=== PATIENT | female | born 1940 | race Caucasian/White ===

== ENCOUNTER 2016-08-31 18:40 | Inpatient (IN) | payer MEDICARE, MEDICAID ==
[~2016-08-31 18:40] MED LIST: ACTIVASE100 MG/VIA IV; ADVAIR 2501 DISK W/D; ADVAIR 2501 DISK W/D IH; ADVAIR HFA 115-28 GM IH; ADVAIR HFA 115/12 GM; ALAVERT10 MG; ALBUTEROL NEB INH; ALBUTEROL0.83 MG/ML; ALBUTEROL2.5 MG/0.5; ALDACTONE25 M1 PO; AMBIEN10 MG PO; AMBIEN5 MG PO; AMIODARONE HCL200 MG; AMIODARONE HCL200 MG PO; ANUSOL-HC30 GM; APAP325 MG; ARAVA20 MG; ASPIR 8181 M1 PO; ASPIR 8181 MG; ASPIRIN EC LOW81 MG; ATARAX PO; ATARAX25 MG PO; ATARAX50 MG PO; AYR SALINE NASA14 GM; BABY ASPIRIN81 MG PO; BACITRACIN28.4 G1 TP; BENADRYL12.5 M1 PO; BENADRYL25 MG/TA1 PO; BENADRYL50 MG; CAL-GEST200 MG PO; CARDIZEM CD120 M1 PO; CHLORASEPTIC S1 EACH MM; CITALOPRAM HBR20 M1 PO; CITRATE OF MAG300 ML PO; CLINIMIX E IV; CO GESIC; COLACE-T100 MG; COLACE100 MG PO; COMBIVENT INH14.7 GM; COMPAZINE10 M PO; COUMADIN1 M1 PO; COUMADIN3 M1 PO; COUMADIN4 MG; COUMADIN4 MG PO; COUMADIN5 MG PO; COUMADIN6 MG; COUMADIN6 MG PO; COUMADIN7.5 MG; DEMADEX20 M1 PO; DETROL LA4 MG; DIGITEK125 MC2 PO; DIGOXIN250 MCG PO; DIPHENOXYLATE/A1 TAB; DITROPAN XL10 MG; DITROPAN XL10 MG PO; DITROPAN5 M1 PO; DOC-Q-LACE100 MG; DOCUSATE SODIU100 M PO; DULCOLAX10 MG/SUPP; DULCOLAX10 MG/SUPP RC; DUONEB 2.5-0.5 M3 ML IH; DUONEB 2.5-0.5MG3 M1 AERO NEB; EEMT HS TABLET1 TAB; EMSAM TD; ESTROPIPATE0.75 MG; FAMOTIDINE20 MG; FE-TABS325 ( 65 ); FEROSUL325 M1 PO; FERROUS SU324 ( 65 ); FLEET ENEMA118 ML RC; FLOVENT DISKU100 MCG IH; FLUOXETINE DR90 MG PO; FLUOXETINE HCL20 MG PO; FLUOXETINE HCL40 MG PO; FREESTYLE LITE1 EACH IN; FUROSEMIDE20 M1 PO; FUROSEMIDE20 MG; FUROSEMIDE40 MG; GABAPENTIN300 MG; GLUCAGON IN1 MG/1 ML IM; H; HUMALOG100 U/ML SQ; HYDROCORTISON28.4 G1 TOP; HYDROXYZINE HCL25 MG PO; IMODIUM A-D2 MG; IPRAT-ALBUT 0.5-3 ML IH; K-DUR20 ME1 PO; K-DUR20 MEQ; KLOR-CON 1010 ME1 PO; KLOR-CON 1010 MEQ PO; LANTUS100 U/ML SC; LASIX20 MG; LASIX20 MG PO; LEVOTHROID25 MCG; LEVOTHROID25 MCG PO; LEVOTHROID50 MCG; LEVOTHROID50 MCG PO; LEVOTHYROXINE50 MCG PO; LIBRIUM10 MG; LORTAB 5/500 TA1 TAB; LORTAB 5/5001 EA PO; LOVENOX120 MG/0.8 SQ; LOVENOX40 MG/0.4 SQ; MAG-AL PLUS XS30 ML PO; MARINOL5 MG; METOLAZONE5 MG; MILK OF MA400 MG/5 M; MILK OF MA400 MG/5 M PO; MIRALAX17 GM PO; MIRTAZAPINE30 M1 PO; MUCINEX600 MG; MULTIVITAMIN1 CAP; MULTIVITAMIN1 TAB; MYCOSTATIN15 GM TP; MYLANTA400 MG; NAPROSYN500 MG; NEURONTIN100 M1 PO; NEURONTIN300 MG; NEXIUM40 M1 PO; NITROGLYCERIN0.4 M2 SL; NORCO 5-325 TA1 EACH PO; NORCO 5/3251 TA2 PO; NORCO 5/3251 TAB PO; NORCO 7.5-3251 EACH PO; NOVOLOG100 U/M SQ; NOVOLOG100 UNIT/1 SQ; NYSTATIN25 GM MC; NYSTOP60 GM EXT; OMEPRAZOLE20 M1; OMEPRAZOLE40 MG PO; OXYBUTYNIN CHLOR5 M2 PO; OXYCONTIN20 M2 PO; OXYCONTIN20 MG; OXYGEN; PACERONE100 MG; PAIN RELIEF325 MG; PATANOL5 ML; PHENERGAN IM; POTASSIUM CHLO10 MEQ PO; POTASSIUM CHLO20 MEQ; PREDNISOLONE5 MG; PREDNISONE10 MG; PREDNISONE10 MG PO; PREDNISONE5 MG; PREDNISONE5 MG PO; PRILOSEC20 MG; PROCTOSOL RC; PROMETHAZINE W118 ML; PROTONIX IV; PROTONIX40 M2 PO; PROZAC20 M1 PO; REGLAN10 MG; REGLAN5 MG; REGLAN5 MG PO; REMEDY CALAZIM113 GM TP; REMERON15 MG; REQUIP1 MG; REQUIP2 MG; REQUIP2 MG PO; ROBITUSSIN DM T10 ML PO; SALSALATE750 MG; SENNA LAXATIVE; SENNA PLUS TAB1 EACH PO; SENNA-S TABLET1 EACH PO; SENNA8.6 M; SENOKOT-S TABLE1 TAB PO; SINGULAIR10 MG; SOAP SUDS ENEMA; SODIUM CHLORID250 M1 IV; SODIUM CHLORIDE IV; SPIRIVA18 MCG; SPIRIVA18 MCG IH; STOOL SOFTE; SULFAMETHOXAZOL1 TA1 PO; SYNTHROID25 MCG PO; SYNTHROID50 MCG PO; SYNTHROID75 MC1 PO; TOPROL XL25 MG PO; TRAMADOL HCL50 MG PO; TRANSDERM-1 PATCH .7 TD; TRIAMCINOLON; TYLENOL #31 TA1 PO; TYLENOL325 M2 PO; TYLENOL325 MG PO; TYLENOL650 MG PO; VIBRAMYCIN100 MG PO; VISTARIL25 MG PO; VITAMIN D1000 UNI1 PO; VITAMIN D5000 UNIT PO; VITAMIN D50000 UNIT; VITAMIN D50000 UNIT PO; WARFARIN SODIUM5 MG; WARFARIN SODIUM5 MG PO; WARFARIN SODIUM6 MG; WELLBUTRIN SR100 MG; XOPENEX HFA15 GM; XOPENEX0.31 MG/3; ZELNORM6 MG; ZESTRIL2.5 M3 PO; ZOFRAN IV; ZOFRAN ODT8 MG/TAB PO; ZOFRAN4 MG PO; ZOFRAN8 MG; ZOLOFT100 MG; [UNRECOGNIZED DRUG - OTHER]; [UNRECOGNIZED DRUG - SUPPLY] MC
[2016-08-31] MEDS ORDERED: NOVOLOG FL100 UNIT/2 SC (18:58)
[2016-08-31] MEDS ORDERED: NYSTOP60 GM EXT ×2 (18:59→19:05)
[2016-08-31] MEDS ORDERED: ZINC OXIDE 40% TP (19:01)
[2016-08-31] MEDS ORDERED: BARRIER CREAM TP (19:01)
[2016-08-31] MEDS ORDERED: AYR SALINE NASA14 GM (19:02)
[2016-08-31] MEDS ORDERED: BIOTENE MOIST44.3 ML PO (19:02)
[2016-08-31] MEDS ORDERED: CALAZIME TP (19:03)
[2016-08-31] MEDS ORDERED: [UNRECOGNIZED DRUG - OTHER] TP (19:03)
[2016-08-31] MEDS ORDERED: GOLD BOND MEDI113 G2 TP ×2 (19:04→19:05)
[2016-08-31] MEDS ORDERED: NYSTOP60 GM (19:04)
[2016-08-31] MEDS ORDERED: PREPARATION H26 GM TP (19:05)
[2016-08-31] MEDS ORDERED: TRIAMCINOLONE A15 G2 TP (19:06)
[2016-08-31] MEDS ORDERED: CORTIZONE-1028 G2 TP (19:06)
[2016-08-31] MEDS ORDERED: DOMEBORO PACKE1 EACH TP (19:07)
[2016-08-31] MEDS ORDERED: CHLORASEPTIC177 M2 PO (19:07)
[2016-08-31] MEDS ORDERED: OMEPRAZOLE20 M3 PO (19:08)
[2016-08-31] MEDS ORDERED: SYNTHROID75 MC1 PO (19:08)
[2016-08-31] MEDS ORDERED: VITAMIN D250000 UNI1 PO (19:08)
[2016-08-31] MEDS ORDERED: ASPIRIN EC81 MG PO (19:09)
[2016-08-31] MEDS ORDERED: [UNRECOGNIZED DRUG - CODE] PO (19:09)
[2016-08-31] MEDS ORDERED: CELEXA20 M2 PO (19:09)
[2016-08-31] MEDS ORDERED: BREO ELLIPTA 11 EAC1 INH (19:09)
[2016-08-31] MEDS ORDERED: DILTIAZEM 24HR120 M4 PO (19:10)
[2016-08-31] MEDS ORDERED: COLACE100 M1 PO (19:10)
[2016-08-31] MEDS ORDERED: CLARITIN10 M6 PO (19:10)
[2016-08-31] MEDS ORDERED: GLUCOPHAGE1000 M1 PO (19:10)
[2016-08-31] MEDS ORDERED: ALDACTONE25 M1 PO (19:11)
[2016-08-31] MEDS ORDERED: TORSEMIDE20 M2 PO (19:11)
[2016-08-31] MEDS ORDERED: TYLENOL325 M2 PO ×3 (19:11→19:13)
[2016-08-31] MEDS ORDERED: FEROSUL325 M1 PO (19:11)
[2016-08-31] MEDS ORDERED: OXYBUTYNIN CHLOR5 M3 PO (19:11)
[2016-08-31] MEDS ORDERED: COUMADIN5 M2 PO (19:12)
[2016-08-31] MEDS ORDERED: NEURONTIN100 M1 PO (19:12)
[2016-08-31] MEDS ORDERED: ARTIFICIAL TEAR1512 OP (19:12)
[2016-08-31] MEDS ORDERED: BENZONATATE200 M1 PO (19:13)
[2016-08-31] MEDS ORDERED: CAL-GEST200 MG PO (19:13)
[2016-08-31] MEDS ORDERED: IPRAT-ALBUT 0.5-3 ML INH (19:13)
[2016-08-31] MEDS ORDERED: LOPERAMIDE2 M2 PO (19:14)
[2016-08-31] MEDS ORDERED: NITROSTAT0.4 MG/TAB SL (19:15)
[2016-08-31] MEDS ORDERED: MUCINEX600 M1 PO (19:15)
[2016-08-31] MEDS ORDERED: ZUPLENZ4 M1 PO (19:16)
[2016-08-31] MEDS ORDERED: MIRALAX17 G2 PO (19:16)
[2016-08-31] MEDS ORDERED: HYDROCODON-ACE1 EA16 PO (19:17)
[2016-08-31] MEDS ORDERED: TESSALON PERLE100 M1 PO (19:17)
[2016-08-31 19:34] LABS: HGB-HEMOGLOBIN 11.2 gm/dl (12.0-15.5); MCHC MEAN CORPUSCULAR HGB CONC 31.1 % (32.0-36.0); MCV (MEAN CELL VOLUME) 83.5 fl (82.0-96.0); MEAN PLATELET VOLUME 10.3 cmc (9.4-12.4); NEUTROPHIL-AUTOMATED 20.7 tho/cmm (1.6-8.0); PLATELET COUNT 272 tho/cmm (150-450); RED BLOOD COUNT 4.31 mil/cmm (4.00-5.20); RED CELL DISTRIBUTION WIDTH 16.8 % (12.4-16.4); WHITE BLOOD COUNT 21.9 tho/cmm (4.0-10.0)
[2016-08-31 19:37] LABS: INR 2.6 INR (0.9-1.1); PROTHROMBIN TIME 30.5 SECONDS (9.0-13.6)
[2016-08-31] MEDS ORDERED: TRIPLE ANTIB28.35 GM TP (19:53)
[2016-08-31 19:56] LABS: ALB/GLOB RATIO 0.8 (0.8-2.0); ALKALINE PHOSPHATASE 67 U/L (33-138); ALT/SGPT 14 U/L (12-78); AST/SGOT 16 U/L (10-40); BILIRUBIN,TOTAL 0.4 mg/dl (0-1.5); BLOOD UREA NITROGEN 29 mg/dl (6-24); CALCIUM 8.7 mg/dl (8.5-10.5); CHLORIDE 102 mmol/l (96-110); GLUCOSE 154 mg/dL (70-110); POTASSIUM 4.6 mmol/L (3.7-5.1); SODIUM 141 mmol/L (135-145); eGFR VALUE FOR BLACK 38 mL/Min
[2016-08-31 20:00] LABS: BAND % 18 % (0-20); BAND ABSOLUTE COUNT 3.9 tho/cmm (0-2.0)
[2016-08-31 20:05] LABS: ANION GAP 12 mmol/L (0-20); CARBON DIOXIDE-VENOUS 32 mmol/L (21-33)
[2016-08-31 20:12] LABS: URINE BILIRUBIN NEGATIVE (NEG); URINE BLOOD SMALL (NEG); URINE GLUCOSE (UA) NEGATIVE (NEG); URINE KETONE NEGATIVE (NEG); URINE LEUKOCYTE ESTERASE POSITIVE (NEG); URINE NITRITE NEGATIVE (NEG); URINE PROTEIN NEGATIVE (NEG)
[2016-08-31 20:13] LABS: URINE APPEARANCE HAZY; URINE COLOR YELLOW; URINE SPECIFIC GRAVITY 1.014 (1.003-1.030)
[2016-08-31 20:23] LABS: URINE WBC 15-20 /[HPF] (0-5)
[2016-08-31 20:24] LABS: URINE BACTERIA 4+
[2016-09-01 04:30] LABS: INR 2.6 INR (0.9-1.1); PROTHROMBIN TIME 30.8 SECONDS (9.0-13.6)
[2016-09-01 04:31] LABS: BASO % 0.1 % (0-2); EOS % 0.1 % (0-7); HCT-HEMATOCRIT 31.1 % (34.0-49.0); HGB-HEMOGLOBIN 9.3 gm/dl (12.0-15.5); IMMATURE GRANULOCYTES ABSOLUTE 0.05 tho/cmm (0-0.03); IMMATURE GRANULOCYTES PERCENT 0.3 % (0-0.3); LYMPH % 3.8 % (20-45); LYMPH ABSOLUTE COUNT 0.7 tho/cmm (0.8-4.5); MCH (MEAN CORPUSCULAR HGB) 25.4 pg (28.0-32.0); MCHC MEAN CORPUSCULAR HGB CONC 29.9 % (32.0-36.0); MEAN PLATELET VOLUME 10.7 cmc (9.4-12.4); MONO % 3.8 % (0-12); MONOCYTE ABSOLUTE COUNT 0.7 tho/cmm (0.0-1.2); NEUTROPHIL ABSOLUTE COUNT 16.2 tho/cmm (1.6-8.0); NEUTROPHIL-AUTOMATED 16.2 tho/cmm (1.6-8.0); NEUTROPHILS % 91.9 % (40-80); PLATELET COUNT 226 tho/cmm (150-450); RED BLOOD COUNT 3.66 mil/cmm (4.00-5.20); RED CELL DISTRIBUTION WIDTH 17.8 % (12.4-16.4); WHITE BLOOD COUNT 17.6 tho/cmm (4.0-10.0)
[2016-09-01 05:12] LABS: ALB/GLOB RATIO 0.7 (0.8-2.0); ALBUMIN 2.4 g/dl (3.5-5.0); ALKALINE PHOSPHATASE 51 U/L (33-138); ALT/SGPT 12 U/L (12-78); ANION GAP 11 mmol/L (0-20); AST/SGOT 12 U/L (10-40); BILIRUBIN,TOTAL 0.5 mg/dl (0-1.5); BLOOD UREA NITROGEN 28 mg/dl (6-24); CALCIUM 8.3 mg/dl (8.5-10.5); CARBON DIOXIDE-VENOUS 28 mmol/L (22-32); CHLORIDE 105 mmol/l (96-110); CREATININE 1.41 mg/dl (0.50-1.10); GLUCOSE 124 mg/dL (70-110); POTASSIUM 4.3 mmol/L (3.7-5.1); SODIUM 140 mmol/L (135-145); eGFR VALUE FOR BLACK 44 mL/Min
[2016-09-01 05:17] LABS: TSH-THYROID STIMULATING HORM. 0.02 uIU/ml (0.40-3.80)
[2016-09-01 13:13] LABS: C-REACTIVE PROTEIN 17.4 mg/dl (0-0.9)
[2016-09-02 06:13] LABS: BASO % 0.1 % (0-2); EOS % 3.3 % (0-7); EOSINOPHIL ABSOLUTE COUNT 0.3 tho/cmm (0.0-0.7); HCT-HEMATOCRIT 30.6 % (34.0-49.0); HGB-HEMOGLOBIN 9.2 gm/dl (12.0-15.5); IMMATURE GRANULOCYTES ABSOLUTE 0.01 tho/cmm (0-0.03); IMMATURE GRANULOCYTES PERCENT 0.1 % (0-0.3); INR 3.4 INR (0.9-1.1); LYMPH % 5.2 % (20-45); LYMPH ABSOLUTE COUNT 0.5 tho/cmm (0.8-4.5); MCH (MEAN CORPUSCULAR HGB) 25.7 pg (28.0-32.0); MCHC MEAN CORPUSCULAR HGB CONC 30.1 % (32.0-36.0); MCV (MEAN CELL VOLUME) 85.5 fl (82.0-96.0); MEAN PLATELET VOLUME 10.1 cmc (9.4-12.4); MONO % 4.2 % (0-12); MONOCYTE ABSOLUTE COUNT 0.4 tho/cmm (0.0-1.2); NEUTROPHIL ABSOLUTE COUNT 8.7 tho/cmm (1.6-8.0); NEUTROPHIL-AUTOMATED 8.7 tho/cmm (1.6-8.0); NEUTROPHILS % 87.1 % (40-80); PLATELET COUNT 193 tho/cmm (150-450); PROTHROMBIN TIME 40.8 SECONDS (9.0-13.6); RED BLOOD COUNT 3.58 mil/cmm (4.00-5.20); RED CELL DISTRIBUTION WIDTH 17.3 % (12.4-16.4)
[2016-09-02 06:29] LABS: ANION GAP 8 mmol/L (0-20); BLOOD UREA NITROGEN 21 mg/dl (6-24); CALCIUM 8.4 mg/dl (8.5-10.5); CARBON DIOXIDE-VENOUS 30 mmol/L (22-32); CHLORIDE 107 mmol/l (96-110); CREATININE 1.32 mg/dl (0.50-1.10); GLUCOSE 102 mg/dL (70-110); MAGNESIUM 2.2 mg/dl (1.3-2.6); POTASSIUM 4.2 mmol/L (3.7-5.1); SODIUM 141 mmol/L (135-145); eGFR VALUE FOR BLACK 48 mL/Min
[2016-09-03 05:20] LABS: BASO % 0.1 % (0-2); EOS % 4.3 % (0-7); EOSINOPHIL ABSOLUTE COUNT 0.4 tho/cmm (0.0-0.7); HCT-HEMATOCRIT 31.2 % (34.0-49.0); HGB-HEMOGLOBIN 9.2 gm/dl (12.0-15.5); IMMATURE GRANULOCYTES ABSOLUTE 0.01 tho/cmm (0-0.03); IMMATURE GRANULOCYTES PERCENT 0.1 % (0-0.3); LYMPH % 7.2 % (20-45); LYMPH ABSOLUTE COUNT 0.6 tho/cmm (0.8-4.5); MCH (MEAN CORPUSCULAR HGB) 25.3 pg (28.0-32.0); MCHC MEAN CORPUSCULAR HGB CONC 29.5 % (32.0-36.0); MCV (MEAN CELL VOLUME) 85.7 fl (82.0-96.0); MEAN PLATELET VOLUME 10.2 cmc (9.4-12.4); MONO % 3.9 % (0-12); MONOCYTE ABSOLUTE COUNT 0.3 tho/cmm (0.0-1.2); NEUTROPHIL ABSOLUTE COUNT 7.1 tho/cmm (1.6-8.0); NEUTROPHIL-AUTOMATED 7.1 tho/cmm (1.6-8.0); NEUTROPHILS % 84.4 % (40-80); PLATELET COUNT 231 tho/cmm (150-450); RED BLOOD COUNT 3.64 mil/cmm (4.00-5.20); RED CELL DISTRIBUTION WIDTH 17.3 % (12.4-16.4); WHITE BLOOD COUNT 8.4 tho/cmm (4.0-10.0)
[2016-09-03 05:33] LABS: ANION GAP 13 mmol/L (0-20); BLOOD UREA NITROGEN 17 mg/dl (6-24); C-REACTIVE PROTEIN 15.8 mg/dl (0-0.9); CALCIUM 8.1 mg/dl (8.5-10.5); CARBON DIOXIDE-VENOUS 25 mmol/L (22-32); CHLORIDE 107 mmol/l (96-110); CREATININE 1.18 mg/dl (0.50-1.10); GLUCOSE 99 mg/dL (70-110); MAGNESIUM 2.3 mg/dl (1.3-2.6); POTASSIUM 4.1 mmol/L (3.7-5.1); SODIUM 141 mmol/L (135-145); eGFR VALUE FOR BLACK 54 mL/Min
[2016-09-03 06:41] LABS: INR 4.2 INR (0.9-1.1); PROTHROMBIN TIME 50.4 SECONDS (9.0-13.6)
[2016-09-04 05:44] LABS: INR 4.3 INR (0.9-1.1); PROTHROMBIN TIME 52.2 SECONDS (9.0-13.6)
[2016-09-04 13:40] LABS: BASO % 0.1 % (0-2); EOS % 3.1 % (0-7); EOSINOPHIL ABSOLUTE COUNT 0.2 tho/cmm (0.0-0.7); HCT-HEMATOCRIT 33.2 % (34.0-49.0); IMMATURE GRANULOCYTES ABSOLUTE 0.03 tho/cmm (0-0.03); IMMATURE GRANULOCYTES PERCENT 0.4 % (0-0.3); LYMPH % 11.7 % (20-45); LYMPH ABSOLUTE COUNT 0.9 tho/cmm (0.8-4.5); MCH (MEAN CORPUSCULAR HGB) 25.5 pg (28.0-32.0); MCHC MEAN CORPUSCULAR HGB CONC 30.1 % (32.0-36.0); MCV (MEAN CELL VOLUME) 84.7 fl (82.0-96.0); MEAN PLATELET VOLUME 10.2 cmc (9.4-12.4); MONO % 7.2 % (0-12); MONOCYTE ABSOLUTE COUNT 0.5 tho/cmm (0.0-1.2); NEUTROPHIL ABSOLUTE COUNT 5.7 tho/cmm (1.6-8.0); NEUTROPHIL-AUTOMATED 5.7 tho/cmm (1.6-8.0); NEUTROPHILS % 77.5 % (40-80); PLATELET COUNT 219 tho/cmm (150-450); RED BLOOD COUNT 3.92 mil/cmm (4.00-5.20); RED CELL DISTRIBUTION WIDTH 17.1 % (12.4-16.4); WHITE BLOOD COUNT 7.4 tho/cmm (4.0-10.0)
[2016-09-04 13:50] LABS: ALB/GLOB RATIO 0.6 (0.8-2.0); ALBUMIN 2.4 g/dl (3.5-5.0); ALKALINE PHOSPHATASE 53 U/L (33-138); ANION GAP 11 mmol/L (0-20); AST/SGOT 6 U/L (10-40); BILIRUBIN,TOTAL 0.3 mg/dl (0-1.5); BLOOD UREA NITROGEN 14 mg/dl (6-24); CALCIUM 8.1 mg/dl (8.5-10.5); CARBON DIOXIDE-VENOUS 26 mmol/L (22-32); CHLORIDE 110 mmol/l (96-110); CREATININE 0.96 mg/dl (0.50-1.10); GLUCOSE 107 mg/dL (70-110); MAGNESIUM 2.2 mg/dl (1.3-2.6); POTASSIUM 4.3 mmol/L (3.7-5.1); SODIUM 143 mmol/L (135-145); eGFR VALUE FOR BLACK >60 mL/Min
[2016-09-04 14:05] LABS: ALT/SGPT <10 U/L (12-78); C-REACTIVE PROTEIN 7.6 mg/dl (0-0.9)
[2016-09-05 06:06] LABS: HCT-HEMATOCRIT 32.1 % (34.0-49.0); HGB-HEMOGLOBIN 9.6 gm/dl (12.0-15.5); IMMATURE GRANULOCYTES ABSOLUTE 0.03 tho/cmm (0-0.03); IMMATURE GRANULOCYTES PERCENT 0.7 % (0-0.3); LYMPH % 9.8 % (20-45); LYMPH ABSOLUTE COUNT 0.4 tho/cmm (0.8-4.5); MCH (MEAN CORPUSCULAR HGB) 25.2 pg (28.0-32.0); MCHC MEAN CORPUSCULAR HGB CONC 29.9 % (32.0-36.0); MCV (MEAN CELL VOLUME) 84.3 fl (82.0-96.0); MEAN PLATELET VOLUME 9.9 cmc (9.4-12.4); MONO % 0.7 % (0-12); NEUTROPHIL ABSOLUTE COUNT 3.9 tho/cmm (1.6-8.0); NEUTROPHIL-AUTOMATED 3.9 tho/cmm (1.6-8.0); NEUTROPHILS % 88.8 % (40-80); PLATELET COUNT 243 tho/cmm (150-450); RED BLOOD COUNT 3.81 mil/cmm (4.00-5.20); RED CELL DISTRIBUTION WIDTH 16.7 % (12.4-16.4); WHITE BLOOD COUNT 4.4 tho/cmm (4.0-10.0)
[2016-09-05 06:10] LABS: INR 3.7 INR (0.9-1.1); PROTHROMBIN TIME 44.6 SECONDS (9.0-13.6)
[2016-09-05 06:20] LABS: ANION GAP 15 mmol/L (0-20); BLOOD UREA NITROGEN 19 mg/dl (6-24); C-REACTIVE PROTEIN 5.1 mg/dl (0-0.9); CALCIUM 8.4 mg/dl (8.5-10.5); CARBON DIOXIDE-VENOUS 21 mmol/L (22-32); CHLORIDE 109 mmol/l (96-110); CREATININE 1.03 mg/dl (0.50-1.10); MAGNESIUM 2.2 mg/dl (1.3-2.6); POTASSIUM 4.9 mmol/L (3.7-5.1); SODIUM 140 mmol/L (135-145); eGFR VALUE FOR BLACK >60 mL/Min
[2016-09-05 06:27] LABS: GLUCOSE 165 mg/dL (70-110)
[2016-09-06 12:20] LABS: BASO % 0.1 % (0-2); EOS % 0.1 % (0-7); HCT-HEMATOCRIT 34.5 % (34.0-49.0); HGB-HEMOGLOBIN 10.4 gm/dl (12.0-15.5); IMMATURE GRANULOCYTES PERCENT 1.2 % (0-0.3); LYMPH % 4.9 % (20-45); LYMPH ABSOLUTE COUNT 0.4 tho/cmm (0.8-4.5); MCH (MEAN CORPUSCULAR HGB) 25.4 pg (28.0-32.0); MCHC MEAN CORPUSCULAR HGB CONC 30.1 % (32.0-36.0); MCV (MEAN CELL VOLUME) 84.1 fl (82.0-96.0); MEAN PLATELET VOLUME 9.7 cmc (9.4-12.4); MONO % 3.8 % (0-12); MONOCYTE ABSOLUTE COUNT 0.3 tho/cmm (0.0-1.2); NEUTROPHIL ABSOLUTE COUNT 7.5 tho/cmm (1.6-8.0); NEUTROPHIL-AUTOMATED 7.5 tho/cmm (1.6-8.0); NEUTROPHILS % 89.9 % (40-80); PLATELET COUNT 262 tho/cmm (150-450); RED CELL DISTRIBUTION WIDTH 16.5 % (12.4-16.4)
[2016-09-06 12:21] LABS: WHITE BLOOD COUNT 8.3 tho/cmm (4.0-10.0)
[2016-09-06 12:32] LABS: ANION GAP 12 mmol/L (0-20); BLOOD UREA NITROGEN 28 mg/dl (6-24); CALCIUM 8.8 mg/dl (8.5-10.5); CARBON DIOXIDE-VENOUS 28 mmol/L (22-32); CHLORIDE 106 mmol/l (96-110); CREATININE 1.23 mg/dl (0.50-1.10); GLUCOSE 210 mg/dL (70-110); POTASSIUM 4.3 mmol/L (3.7-5.1); SODIUM 142 mmol/L (135-145); eGFR VALUE FOR BLACK 52 mL/Min
[2016-09-06 13:14] LABS: INR 2.2 INR (0.9-1.1); PROTHROMBIN TIME 26.2 SECONDS (9.0-13.6)
[2016-09-07 05:07] LABS: INR 1.9 INR (0.9-1.1); PROTHROMBIN TIME 22.5 SECONDS (9.0-13.6)
[2016-09-07 12:08] LABS: INR 1.8 INR (0.9-1.1); PROTHROMBIN TIME 20.7 SECONDS (9.0-13.6)
[2016-09-08 06:15] LABS: INR 1.7 INR (0.9-1.1)
[2016-09-08 06:18] LABS: ANION GAP 11 mmol/L (0-20); BLOOD UREA NITROGEN 38 mg/dl (6-24); CALCIUM 8.5 mg/dl (8.5-10.5); CARBON DIOXIDE-VENOUS 34 mmol/L (22-32); CHLORIDE 99 mmol/l (96-110); CREATININE 1.34 mg/dl (0.50-1.10); GLUCOSE 163 mg/dL (70-110); SODIUM 139 mmol/L (135-145); eGFR VALUE FOR BLACK 45 mL/Min
[2016-09-08 06:19] LABS: POTASSIUM 4.5 mmol/L (3.7-5.1)
[2016-09-09 05:18] LABS: INR 1.7 INR (0.9-1.1); PROTHROMBIN TIME 20.4 SECONDS (9.0-13.6)
[2016-09-09 05:26] LABS: ANION GAP 11 mmol/L (0-20); BLOOD UREA NITROGEN 45 mg/dl (6-24); CALCIUM 8.7 mg/dl (8.5-10.5); CARBON DIOXIDE-VENOUS 39 mmol/L (22-32); CHLORIDE 95 mmol/l (96-110); CREATININE 1.37 mg/dl (0.50-1.10); GLUCOSE 105 mg/dL (70-110); SODIUM 141 mmol/L (135-145); eGFR VALUE FOR BLACK 44 mL/Min
[2016-09-09 05:31] LABS: POTASSIUM 3.7 mmol/L (3.7-5.1)
[2016-09-09] MEDS ORDERED: TYLENOL325 M2 PO (11:28)
[2016-09-09] MEDS ORDERED: HYDROCODON-ACE1 EA16 PO (11:29)
[2016-09-09] MEDS ORDERED: FLOVENT HFA1 PUFF INH (11:38)
[2016-09-09] MEDS ORDERED: [UNRECOGNIZED DRUG - OTHER] (11:40)
[2016-09-09] MEDS ORDERED: GONAK ×2 (11:43→11:45)
[2016-09-09] MEDS ORDERED: LUBRICANT (11:49)
[2016-09-09] MEDS ORDERED: MACROBID 100 M100 M1 PO (11:54)
[2016-09-09] MEDS ORDERED: IPRAT-ALBUT 0.5-3 ML (11:59)
[2016-09-09] MEDS ORDERED: SULFAMYLON60 GM (12:08)
[2016-09-09] MEDS ORDERED: TRIPLE ANTIBIOT28 G1 (12:09)
[2016-09-09] MEDS ORDERED: OMEPRAZOLE20 M3 PO (12:11)
[2016-09-09] MEDS ORDERED: VITAMIN D250000 UNI1 PO (12:14)
[2016-09-09] MEDS ORDERED: ZINC OXIDE30 G1 TP (12:15)
[2016-10-02] MEDS ORDERED: CLARITIN10 M6 PO (12:45)
[2016-10-02] MEDS ORDERED: COUMADIN4 M1 PO (12:45)
[2016-10-02] MEDS ORDERED: FEOSOL325 M1 PO (12:46)
[2016-10-02] MEDS ORDERED: DILTIAZEM 24HR120 M3 PO (12:47)
[2016-10-02] MEDS ORDERED: ASPIRIN EC81 MG PO (12:47)
[2016-10-02] MEDS ORDERED: CELEXA20 M2 PO (12:48)
[2016-10-02] MEDS ORDERED: NEURONTIN100 M1 PO (12:48)
[2016-10-02] MEDS ORDERED: ALDACTONE25 M1 PO (12:49)
[2016-10-02] MEDS ORDERED: DEMADEX20 M1 PO (12:49)
[2016-10-02] MEDS ORDERED: TYLENOL325 M2 PO ×2 (12:49→12:58)
[2016-10-02] MEDS ORDERED: BREO ELLIPTA 11 EAC1 INH (12:49)
[2016-10-02] MEDS ORDERED: [UNRECOGNIZED DRUG - CODE] PO (12:50)
[2016-10-02] MEDS ORDERED: ISOPTO TEARS15 M1 OP ×2 (12:50→12:59)
[2016-10-02] MEDS ORDERED: COLACE100 M1 PO (12:50)
[2016-10-02] MEDS ORDERED: SYNTHROID75 MC1 PO (12:51)
[2016-10-02] MEDS ORDERED: GLUCOPHAGE500 M3 PO (12:51)
[2016-10-02] MEDS ORDERED: OMEPRAZOLE20 M3 PO (12:51)
[2016-10-02] MEDS ORDERED: DITROPAN XL5 M3 PO (12:52)
[2016-10-02] MEDS ORDERED: VITAMIN D250000 UNI1 PO (12:52)
[2016-10-02] MEDS ORDERED: MUCINEX600 M1 PO ×2 (12:53→12:59)
[2016-10-02] MEDS ORDERED: BENZONATATE200 M1 PO ×2 (12:53→12:59)
[2016-10-02] MEDS ORDERED: PREDNISOLONE ACE5 M1 OP (12:55)
[2016-10-02] MEDS ORDERED: POLYTRIM EYE DR10 M1 OP (12:56)
[2016-10-02] MEDS ORDERED: IPRAT-ALBUT 0.5-3 ML INH (12:57)
[2016-10-02] MEDS ORDERED: HYDROCODON-ACE1 EA16 PO (12:58)
[2016-10-02] MEDS ORDERED: NITROSTAT0.4 MG/TAB SL (12:58)
[2016-10-02] MEDS ORDERED: LOPERAMIDE2 M2 PO (13:00)
[2016-10-02] MEDS ORDERED: MIRALAX17 G2 PO (13:00)
[2016-10-02] MEDS ORDERED: AYR SALINE NASA14 GM (13:00)
[2016-10-02] MEDS ORDERED: ZOFRAN4 M2 PO (13:01)
[2016-10-02] MEDS ORDERED: A AND D OINTM42.5 GM TP (13:02)
[2016-10-02] MEDS ORDERED: DESITIN57 GM TP (13:03)
[2016-10-02] MEDS ORDERED: NYSTOP60 GM EXT (13:03)
[2016-10-02] MEDS ORDERED: ZINC OXIDE30 G1 TP (13:04)
[2016-10-02] MEDS ORDERED: NOVOLOG100 UNITS/ SC (13:05)
[2016-10-20] MEDS ORDERED: AYR SALINE NASA14 GM (10:07)
[2016-10-20] MEDS ORDERED: DESITIN DIAPER28 GM TOP (10:08)
[2016-10-20] MEDS ORDERED: MIRALAX17 G2 PO (10:09)
[2016-10-20] MEDS ORDERED: NYSTATIN15 G2 TOP (10:09)
[2016-10-20] MEDS ORDERED: NORCO 5-325 TA1 EACH PO (10:09)
[2016-10-20] MEDS ORDERED: MUCINEX600 M1 PO (10:09)
[2016-10-20] MEDS ORDERED: LEVOTHYROXINE75 MC3 PO (10:09)
[2016-10-20] MEDS ORDERED: CARDIZEM CD120 M1 PO (10:10)
[2016-10-20] MEDS ORDERED: COLACE100 M1 PO (10:10)
[2016-10-20] MEDS ORDERED: ASPIRIN EC81 MG PO (10:10)
[2016-10-20] MEDS ORDERED: BREO ELLIPTA 11 EAC1 INH (10:10)
[2016-10-20] MEDS ORDERED: LACTINEX CHEWA1 EAC1 PO (10:10)
[2016-10-20] MEDS ORDERED: OMEPRAZOLE20 M3 PO (10:10)
[2016-10-20] MEDS ORDERED: CELEXA20 M2 PO (10:10)
[2016-10-20] MEDS ORDERED: CLARITIN10 M8 PO (10:11)
[2016-10-20] MEDS ORDERED: FEOSOL325 M1 PO (10:11)
[2016-10-20] MEDS ORDERED: GLUCOPHAGE1000 M1 PO (10:11)
[2016-10-20] MEDS ORDERED: ALDACTONE25 M1 PO (10:11)
[2016-10-20] MEDS ORDERED: OXYBUTYNIN CHLOR5 M2 PO (10:11)
[2016-10-20] MEDS ORDERED: TYLENOL325 M2 PO (10:12)
[2016-10-20] MEDS ORDERED: BLEPHAMIDE EYE3.5 G1 OP (10:12)
[2016-10-20] MEDS ORDERED: DEMADEX20 M1 PO (10:12)
[2016-10-20] MEDS ORDERED: POLYTRIM EYE DR10 M1 OP (10:12)
[2016-10-20] MEDS ORDERED: ISOPTO TEARS15 M1 OP (10:12)
[2016-10-20] MEDS ORDERED: COUMADIN4 M1 PO (10:13)
[2016-10-20] MEDS ORDERED: TESSALON PERLE100 M1 PO (10:13)
[2016-10-20] MEDS ORDERED: REFRESH PLUS1 EACH OP (10:13)
[2016-10-20] MEDS ORDERED: NEURONTIN100 M1 PO (10:13)
[2016-10-20] MEDS ORDERED: VIBRAMYCIN100 M1 PO (10:13)
[2016-10-20] MEDS ORDERED: COMBIVENT RESPIM4 G1 NEB (10:14)
[2016-10-20] MEDS ORDERED: COMPLETE MULTI1 EAC1 PO (10:14)
== END 2016-09-09 16:00 | DRG 872 ==
LOC: EDMED 18:40 → EMR2 22:29 → PCUB 23:32 → 5WD 09-04 18:10
PROVIDERS: Emergency Medicine; Family Medicine; Internal Medicine; ADMIT Internal Medicine
PROC: 05HD33Z Insertion of Infusion Device into Right Cephalic Vein, Percutaneous Approach (ICD-10-PCS; principal; 2016-09-01)
DX: A41.51 Sepsis due to Escherichia coli [E. coli] (principal); N17.9 Acute kidney failure, unspecified; J96.10 Chronic respiratory failure, unspecified whether with hypoxia or hypercapnia; E11.22 Type 2 diabetes mellitus with diabetic chronic kidney disease; N39.0 Urinary tract infection, site not specified; B37.2 Candidiasis of skin and nail; I48.91 Unspecified atrial fibrillation; J44.9 Chronic obstructive pulmonary disease, unspecified; Z68.41 Body mass index [BMI] 40.0-44.9, adult; D63.8 Anemia in other chronic diseases classified elsewhere; L03.311 Cellulitis of abdominal wall; G43.909 Migraine, unspecified, not intractable, without status migrainosus; D50.9 Iron deficiency anemia, unspecified; E03.9 Hypothyroidism, unspecified; E66.01 Morbid (severe) obesity due to excess calories; F31.9 Bipolar disorder, unspecified; N18.3 Chronic kidney disease, stage 3 (moderate); H25.10 Age-related nuclear cataract, unspecified eye; S05.01XA Injury of conjunctiva and corneal abrasion without foreign body, right eye, initial encounter; Z79.01 Long term (current) use of anticoagulants; Z79.4 Long term (current) use of insulin
CPT/HCPCS: C1751; C9113; J0295; J0690; J1200; J1815; J1940; J2543; J2930; J3370; J7030; J7040; J7050; J7512; Q9967

== ENCOUNTER 2016-10-02 14:09 | Inpatient (IN) | payer MEDICARE, MEDICAID ==
[2016-10-02 13:49] LABS: BASO % 0.1 % (0-2); HCT-HEMATOCRIT 40.9 % (34.0-49.0); HGB-HEMOGLOBIN 12.3 gm/dl (12.0-15.5); LYMPH % 4.8 % (20-45); LYMPH ABSOLUTE COUNT 0.8 tho/cmm (0.8-4.5); MCH (MEAN CORPUSCULAR HGB) 25.2 pg (28.0-32.0); MCHC MEAN CORPUSCULAR HGB CONC 30.1 % (32.0-36.0); MCV (MEAN CELL VOLUME) 83.8 fl (82.0-96.0); MEAN PLATELET VOLUME 11.2 cmc (9.4-12.4); MONO % 6.9 % (0-12); MONOCYTE ABSOLUTE COUNT 1.2 tho/cmm (0.0-1.2); NEUTROPHIL ABSOLUTE COUNT 15.3 tho/cmm (1.6-8.0); NEUTROPHIL-AUTOMATED 15.3 tho/cmm (1.6-8.0); NEUTROPHILS % 88.2 % (40-80); PLATELET COUNT 283 tho/cmm (150-450); RED BLOOD COUNT 4.88 mil/cmm (4.00-5.20); RED CELL DISTRIBUTION WIDTH 17.4 % (12.4-16.4); WHITE BLOOD COUNT 17.3 tho/cmm (4.0-10.0)
[2016-10-02 13:52] LABS: INR 1.8 INR (0.9-1.1); PROTHROMBIN TIME 21.7 SECONDS (9.0-13.6)
[~2016-10-02 14:09] MED LIST changes: +A AND D OINTM42.5 GM TP; +ARTIFICIAL TEAR1512 OP; +ASPIRIN EC81 MG PO; +BARRIER CREAM TP; +BENZONATATE200 M1 PO; +BIOTENE MOIST44.3 ML PO; +BREO ELLIPTA 11 EAC1 INH; +CALAZIME TP; +CELEXA20 M2 PO; +CHLORASEPTIC177 M2 PO; +CLARITIN10 M6 PO; +COLACE100 M1 PO; +CORTIZONE-1028 G2 TP; +COUMADIN4 M1 PO; +COUMADIN5 M2 PO; +DESITIN57 GM TP; +DILTIAZEM 24HR120 M3 PO; +DILTIAZEM 24HR120 M4 PO; +DITROPAN XL5 M3 PO; +DOMEBORO PACKE1 EACH TP; +FEOSOL325 M1 PO; +FLOVENT HFA1 PUFF INH; +GLUCOPHAGE1000 M1 PO; +GLUCOPHAGE500 M3 PO; +GOLD BOND MEDI113 G2 TP; +GONAK; +HYDROCODON-ACE1 EA16 PO; +IPRAT-ALBUT 0.5-3 ML; +IPRAT-ALBUT 0.5-3 ML INH; +ISOPTO TEARS15 M1 OP; +LOPERAMIDE2 M2 PO; +LUBRICANT; +MACROBID 100 M100 M1 PO; +MIRALAX17 G2 PO; +MUCINEX600 M1 PO; +NITROSTAT0.4 MG/TAB SL; +NOVOLOG FL100 UNIT/2 SC; +NOVOLOG100 UNITS/ SC; +NYSTOP60 GM; +OMEPRAZOLE20 M3 PO; +OXYBUTYNIN CHLOR5 M3 PO; +POLYTRIM EYE DR10 M1 OP; +PREDNISOLONE ACE5 M1 OP; +PREPARATION H26 GM TP; +SULFAMYLON60 GM; +TESSALON PERLE100 M1 PO; +TORSEMIDE20 M2 PO; +TRIAMCINOLONE A15 G2 TP; +TRIPLE ANTIB28.35 GM TP; +TRIPLE ANTIBIOT28 G1; +VITAMIN D250000 UNI1 PO; +ZINC OXIDE 40% TP; +ZINC OXIDE30 G1 TP; +ZOFRAN4 M2 PO; +ZUPLENZ4 M1 PO; +[UNRECOGNIZED DRUG - CODE] PO; +[UNRECOGNIZED DRUG - OTHER]; +[UNRECOGNIZED DRUG - OTHER] TP
[2016-10-02 14:12] LABS: ALB/GLOB RATIO 0.7 (0.8-2.0); ALBUMIN 2.9 g/dl (3.5-5.0); ALKALINE PHOSPHATASE 89 U/L (33-138); ALT/SGPT 16 U/L (12-78); ANION GAP 12 mmol/L (0-20); AST/SGOT 17 U/L (10-40); BILIRUBIN,TOTAL 0.9 mg/dl (0-1.5); BLOOD UREA NITROGEN 22 mg/dl (6-24); CALCIUM 9.1 mg/dl (8.5-10.5); CARBON DIOXIDE-VENOUS 32 mmol/L (22-32); CHLORIDE 102 mmol/l (96-110); GLUCOSE 138 mg/dL (70-110); LIPASE 54 U/L (73-393); POTASSIUM 4.9 mmol/L (3.7-5.1); SODIUM 141 mmol/L (135-145); eGFR VALUE FOR BLACK 42 mL/Min
[2016-10-02 14:15] LABS: C-REACTIVE PROTEIN 22.6 mg/dl (0-0.9)
[2016-10-02 14:17] LABS: PROCALCITONIN 0.31 ng/ml (0.05-0.09)
[2016-10-02 14:37] LABS: URINE APPEARANCE CLOUDY; URINE BILIRUBIN NEGATIVE (NEG); URINE BLOOD SMALL (NEG); URINE COLOR YELLOW; URINE GLUCOSE (UA) NEGATIVE (NEG); URINE KETONE NEGATIVE (NEG); URINE LEUKOCYTE ESTERASE POSITIVE (NEG); URINE NITRITE POSITIVE (NEG); URINE PROTEIN SMALL (NEG)
[2016-10-02 14:41] LABS: URINE BACTERIA 4+
[2016-10-02 14:42] LABS: URINE RBC 0-2 /[HPF] (0-5); URINE WBC 0-5 /[HPF] (0-5)
[2016-10-03 00:38] LABS: BASO % 0.1 % (0-2); HCT-HEMATOCRIT 31.2 % (34.0-49.0); HGB-HEMOGLOBIN 9.5 gm/dl (12.0-15.5); IMMATURE GRANULOCYTES ABSOLUTE 0.04 tho/cmm (0-0.03); IMMATURE GRANULOCYTES PERCENT 0.4 % (0-0.3); LYMPH % 3.2 % (20-45); LYMPH ABSOLUTE COUNT 0.3 tho/cmm (0.8-4.5); MCH (MEAN CORPUSCULAR HGB) 25.5 pg (28.0-32.0); MCHC MEAN CORPUSCULAR HGB CONC 30.4 % (32.0-36.0); MCV (MEAN CELL VOLUME) 83.9 fl (82.0-96.0); MEAN PLATELET VOLUME 10.5 cmc (9.4-12.4); MONO % 3.5 % (0-12); MONOCYTE ABSOLUTE COUNT 0.3 tho/cmm (0.0-1.2); NEUTROPHIL ABSOLUTE COUNT 8.8 tho/cmm (1.6-8.0); NEUTROPHIL-AUTOMATED 8.8 tho/cmm (1.6-8.0); NEUTROPHILS % 92.8 % (40-80); PLATELET COUNT 177 tho/cmm (150-450); RED BLOOD COUNT 3.72 mil/cmm (4.00-5.20); RED CELL DISTRIBUTION WIDTH 17.2 % (12.4-16.4); WHITE BLOOD COUNT 9.5 tho/cmm (4.0-10.0)
[2016-10-03 00:44] LABS: INR 1.6 INR (0.9-1.1); PROTHROMBIN TIME 18.3 SECONDS (9.0-13.6)
[2016-10-03 00:50] LABS: ANION GAP 11 mmol/L (0-20); BLOOD UREA NITROGEN 20 mg/dl (6-24); CALCIUM 8.2 mg/dl (8.5-10.5); CARBON DIOXIDE-VENOUS 27 mmol/L (22-32); CHLORIDE 109 mmol/l (96-110); CREATININE 1.27 mg/dl (0.50-1.10); GLUCOSE 170 mg/dL (70-110); MAGNESIUM 1.7 mg/dl (1.3-2.6); PHOSPHOROUS 2.7 mg/dl (2.5-4.9); POTASSIUM 4.1 mmol/L (3.7-5.1); SODIUM 143 mmol/L (135-145); eGFR VALUE FOR BLACK 48 mL/Min
[2016-10-03 05:47] LABS: INR 1.5 INR (0.9-1.1)
[2016-10-03 05:48] LABS: BASO % 0.1 % (0-2); HCT-HEMATOCRIT 31.3 % (34.0-49.0); HGB-HEMOGLOBIN 9.4 gm/dl (12.0-15.5); IMMATURE GRANULOCYTES ABSOLUTE 0.03 tho/cmm (0-0.03); IMMATURE GRANULOCYTES PERCENT 0.3 % (0-0.3); LYMPH % 3.9 % (20-45); LYMPH ABSOLUTE COUNT 0.4 tho/cmm (0.8-4.5); MCH (MEAN CORPUSCULAR HGB) 25.3 pg (28.0-32.0); MCV (MEAN CELL VOLUME) 84.4 fl (82.0-96.0); MEAN PLATELET VOLUME 10.6 cmc (9.4-12.4); MONO % 3.3 % (0-12); MONOCYTE ABSOLUTE COUNT 0.4 tho/cmm (0.0-1.2); NEUTROPHIL ABSOLUTE COUNT 10.2 tho/cmm (1.6-8.0); NEUTROPHIL-AUTOMATED 10.2 tho/cmm (1.6-8.0); NEUTROPHILS % 92.4 % (40-80); PLATELET COUNT 186 tho/cmm (150-450); RED BLOOD COUNT 3.71 mil/cmm (4.00-5.20); RED CELL DISTRIBUTION WIDTH 17.4 % (12.4-16.4); WHITE BLOOD COUNT 11.1 tho/cmm (4.0-10.0)
[2016-10-03 05:57] LABS: PROTHROMBIN TIME 17.6 SECONDS (9.0-13.6)
[2016-10-03 06:02] LABS: ANION GAP 10 mmol/L (0-20); BLOOD UREA NITROGEN 20 mg/dl (6-24); CALCIUM 8.3 mg/dl (8.5-10.5); CARBON DIOXIDE-VENOUS 28 mmol/L (22-32); CHLORIDE 109 mmol/l (96-110); CREATININE 1.21 mg/dl (0.50-1.10); GLUCOSE 151 mg/dL (70-110); POTASSIUM 4.3 mmol/L (3.7-5.1); SODIUM 143 mmol/L (135-145); eGFR VALUE FOR BLACK 51 mL/Min
[2016-10-03 06:13] LABS: C-REACTIVE PROTEIN 26.1 mg/dl (0-0.9)
[2016-10-04 05:54] LABS: BASO % 0.1 % (0-2); EOS % 0.8 % (0-7); EOSINOPHIL ABSOLUTE COUNT 0.1 tho/cmm (0.0-0.7); HCT-HEMATOCRIT 31.7 % (34.0-49.0); HGB-HEMOGLOBIN 9.4 gm/dl (12.0-15.5); IMMATURE GRANULOCYTES ABSOLUTE 0.03 tho/cmm (0-0.03); IMMATURE GRANULOCYTES PERCENT 0.3 % (0-0.3); LYMPH % 6.8 % (20-45); LYMPH ABSOLUTE COUNT 0.7 tho/cmm (0.8-4.5); MCH (MEAN CORPUSCULAR HGB) 25.6 pg (28.0-32.0); MCHC MEAN CORPUSCULAR HGB CONC 29.7 % (32.0-36.0); MCV (MEAN CELL VOLUME) 86.4 fl (82.0-96.0); MEAN PLATELET VOLUME 10.6 cmc (9.4-12.4); MONO % 5.8 % (0-12); MONOCYTE ABSOLUTE COUNT 0.6 tho/cmm (0.0-1.2); NEUTROPHIL ABSOLUTE COUNT 9.2 tho/cmm (1.6-8.0); NEUTROPHIL-AUTOMATED 9.2 tho/cmm (1.6-8.0); NEUTROPHILS % 86.2 % (40-80); PLATELET COUNT 188 tho/cmm (150-450); RED BLOOD COUNT 3.67 mil/cmm (4.00-5.20); RED CELL DISTRIBUTION WIDTH 17.5 % (12.4-16.4); WHITE BLOOD COUNT 10.6 tho/cmm (4.0-10.0)
[2016-10-04 17:07] LABS: ANION GAP 10 mmol/L (0-20); BLOOD UREA NITROGEN 20 mg/dl (6-24); CALCIUM 8.3 mg/dl (8.5-10.5); CARBON DIOXIDE-VENOUS 28 mmol/L (22-32); CHLORIDE 109 mmol/l (96-110); CREATININE 1.11 mg/dl (0.50-1.10); GLUCOSE 112 mg/dL (70-110); POTASSIUM 3.6 mmol/L (3.7-5.1); SODIUM 143 mmol/L (135-145); eGFR VALUE FOR BLACK 56 mL/Min
[2016-10-05 06:43] LABS: BASO % 0.1 % (0-2); EOS % 3.4 % (0-7); EOSINOPHIL ABSOLUTE COUNT 0.3 tho/cmm (0.0-0.7); HCT-HEMATOCRIT 29.3 % (34.0-49.0); HGB-HEMOGLOBIN 8.8 gm/dl (12.0-15.5); IMMATURE GRANULOCYTES ABSOLUTE 0.03 tho/cmm (0-0.03); IMMATURE GRANULOCYTES PERCENT 0.3 % (0-0.3); LYMPH % 4.6 % (20-45); LYMPH ABSOLUTE COUNT 0.5 tho/cmm (0.8-4.5); MCH (MEAN CORPUSCULAR HGB) 25.8 pg (28.0-32.0); MCV (MEAN CELL VOLUME) 85.9 fl (82.0-96.0); MEAN PLATELET VOLUME 10.3 cmc (9.4-12.4); MONO % 4.6 % (0-12); MONOCYTE ABSOLUTE COUNT 0.5 tho/cmm (0.0-1.2); NEUTROPHIL ABSOLUTE COUNT 8.7 tho/cmm (1.6-8.0); NEUTROPHIL-AUTOMATED 8.7 tho/cmm (1.6-8.0); PLATELET COUNT 213 tho/cmm (150-450); RED BLOOD COUNT 3.41 mil/cmm (4.00-5.20); RED CELL DISTRIBUTION WIDTH 17.4 % (12.4-16.4)
[2016-10-05 06:57] LABS: ALB/GLOB RATIO 0.5 (0.8-2.0); ALKALINE PHOSPHATASE 74 U/L (33-138); ALT/SGPT 11 U/L (12-78); BILIRUBIN,TOTAL 0.6 mg/dl (0-1.5); BLOOD UREA NITROGEN 16 mg/dl (6-24); CALCIUM 8.1 mg/dl (8.5-10.5); CARBON DIOXIDE-VENOUS 25 mmol/L (22-32); CHLORIDE 111 mmol/l (96-110); CREATININE 0.97 mg/dl (0.50-1.10); GLUCOSE 97 mg/dL (70-110); SODIUM 142 mmol/L (135-145); eGFR VALUE FOR BLACK 66 mL/Min
[2016-10-05 07:02] LABS: ANION GAP 10 mmol/L (0-20); AST/SGOT 12 U/L (10-40); POTASSIUM 3.7 mmol/L (3.7-5.1)
[2016-10-06 04:59] LABS: INR 1.2 INR (0.9-1.1); PROTHROMBIN TIME 13.7 SECONDS (9.0-13.6)
[2016-10-06 09:41] LABS: BASO % 0.1 % (0-2); EOS % 3.3 % (0-7); EOSINOPHIL ABSOLUTE COUNT 0.4 tho/cmm (0.0-0.7); HCT-HEMATOCRIT 29.7 % (34.0-49.0); HGB-HEMOGLOBIN 8.8 gm/dl (12.0-15.5); IMMATURE GRANULOCYTES ABSOLUTE 0.05 tho/cmm (0-0.03); IMMATURE GRANULOCYTES PERCENT 0.5 % (0-0.3); LYMPH % 2.5 % (20-45); LYMPH ABSOLUTE COUNT 0.3 tho/cmm (0.8-4.5); MCH (MEAN CORPUSCULAR HGB) 25.3 pg (28.0-32.0); MCHC MEAN CORPUSCULAR HGB CONC 29.6 % (32.0-36.0); MCV (MEAN CELL VOLUME) 85.3 fl (82.0-96.0); MEAN PLATELET VOLUME 9.7 cmc (9.4-12.4); MONO % 4.1 % (0-12); MONOCYTE ABSOLUTE COUNT 0.5 tho/cmm (0.0-1.2); NEUTROPHIL ABSOLUTE COUNT 9.9 tho/cmm (1.6-8.0); NEUTROPHIL-AUTOMATED 9.9 tho/cmm (1.6-8.0); NEUTROPHILS % 89.5 % (40-80); PLATELET COUNT 208 tho/cmm (150-450); RED BLOOD COUNT 3.48 mil/cmm (4.00-5.20); RED CELL DISTRIBUTION WIDTH 17.4 % (12.4-16.4)
[2016-10-06 09:57] LABS: ANION GAP 13 mmol/L (0-20); BLOOD UREA NITROGEN 11 mg/dl (6-24); CALCIUM 8.6 mg/dl (8.5-10.5); CARBON DIOXIDE-VENOUS 25 mmol/L (22-32); CHLORIDE 112 mmol/l (96-110); CREATININE 0.82 mg/dl (0.50-1.10); GLUCOSE 110 mg/dL (70-110); MAGNESIUM 1.9 mg/dl (1.3-2.6); PHOSPHOROUS 2.5 mg/dl (2.5-4.9); POTASSIUM 3.5 mmol/L (3.7-5.1); SODIUM 146 mmol/L (135-145); eGFR VALUE FOR BLACK 81 mL/Min
[2016-10-06] MEDS ORDERED: LOVENOX40 MG/0.1 SC (13:57)
[2016-10-06] MEDS ORDERED: GLUCAGON HCL1 MG SC (14:10)
[2016-10-20] MEDS ORDERED: AYR SALINE NASA14 GM (10:07)
[2016-10-20] MEDS ORDERED: DESITIN DIAPER28 GM TOP (10:08)
[2016-10-20] MEDS ORDERED: MIRALAX17 G2 PO (10:09)
[2016-10-20] MEDS ORDERED: MUCINEX600 M1 PO (10:09)
[2016-10-20] MEDS ORDERED: NORCO 5-325 TA1 EACH PO (10:09)
[2016-10-20] MEDS ORDERED: NYSTATIN15 G2 TOP (10:09)
[2016-10-20] MEDS ORDERED: LEVOTHYROXINE75 MC3 PO (10:09)
[2016-10-20] MEDS ORDERED: OMEPRAZOLE20 M3 PO (10:10)
[2016-10-20] MEDS ORDERED: LACTINEX CHEWA1 EAC1 PO (10:10)
[2016-10-20] MEDS ORDERED: CELEXA20 M2 PO (10:10)
[2016-10-20] MEDS ORDERED: ASPIRIN EC81 MG PO (10:10)
[2016-10-20] MEDS ORDERED: CARDIZEM CD120 M1 PO (10:10)
[2016-10-20] MEDS ORDERED: COLACE100 M1 PO (10:10)
[2016-10-20] MEDS ORDERED: BREO ELLIPTA 11 EAC1 INH (10:10)
[2016-10-20] MEDS ORDERED: CLARITIN10 M8 PO (10:11)
[2016-10-20] MEDS ORDERED: OXYBUTYNIN CHLOR5 M2 PO (10:11)
[2016-10-20] MEDS ORDERED: GLUCOPHAGE1000 M1 PO (10:11)
[2016-10-20] MEDS ORDERED: FEOSOL325 M1 PO (10:11)
[2016-10-20] MEDS ORDERED: ALDACTONE25 M1 PO (10:11)
[2016-10-20] MEDS ORDERED: DEMADEX20 M1 PO (10:12)
[2016-10-20] MEDS ORDERED: ISOPTO TEARS15 M1 OP (10:12)
[2016-10-20] MEDS ORDERED: BLEPHAMIDE EYE3.5 G1 OP (10:12)
[2016-10-20] MEDS ORDERED: POLYTRIM EYE DR10 M1 OP (10:12)
[2016-10-20] MEDS ORDERED: TYLENOL325 M2 PO (10:12)
[2016-10-20] MEDS ORDERED: NEURONTIN100 M1 PO (10:13)
[2016-10-20] MEDS ORDERED: VIBRAMYCIN100 M1 PO (10:13)
[2016-10-20] MEDS ORDERED: REFRESH PLUS1 EACH OP (10:13)
[2016-10-20] MEDS ORDERED: TESSALON PERLE100 M1 PO (10:13)
[2016-10-20] MEDS ORDERED: COUMADIN4 M1 PO (10:13)
[2016-10-20] MEDS ORDERED: COMBIVENT RESPIM4 G1 NEB (10:14)
[2016-10-20] MEDS ORDERED: COMPLETE MULTI1 EAC1 PO (10:14)
== END 2016-10-06 16:30 | DRG 853 ==
LOC: EDMED 14:09 → EMR2 15:08 → ORW 20:00 → BURN 10-03 01:09
PROVIDERS: Emergency Medicine; Family Medicine; Hospitalist; Internal Medicine; Surgery; ADMIT Hospitalist
PROC: 0WUF0JZ Supplement Abdominal Wall with Synthetic Substitute, Open Approach (ICD-10-PCS; principal; 2016-10-02)
PROC: 0DB80ZZ Excision of Small Intestine, Open Approach (ICD-10-PCS; 2016-10-02)
PROC: 0WBF0ZZ Excision of Abdominal Wall, Open Approach (ICD-10-PCS; 2016-10-02)
PROC: 05H533Z Insertion of Infusion Device into Right Subclavian Vein, Percutaneous Approach (ICD-10-PCS; 2016-10-04)
DX: A41.9 Sepsis, unspecified organism (principal); K43.7 Other and unspecified ventral hernia with gangrene; J96.11 Chronic respiratory failure with hypoxia; E87.0 Hyperosmolality and hypernatremia; E11.22 Type 2 diabetes mellitus with diabetic chronic kidney disease; N39.0 Urinary tract infection, site not specified; J44.9 Chronic obstructive pulmonary disease, unspecified; B96.1 Klebsiella pneumoniae [K. pneumoniae] as the cause of diseases classified elsewhere; I48.2 Chronic atrial fibrillation; Z79.01 Long term (current) use of anticoagulants; Z99.81 Dependence on supplemental oxygen; I12.9 Hypertensive chronic kidney disease with stage 1 through stage 4 chronic kidney disease, or unspecified chronic kidney disease; N18.3 Chronic kidney disease, stage 3 (moderate); K21.9 Gastro-esophageal reflux disease without esophagitis; G47.33 Obstructive sleep apnea (adult) (pediatric); M81.0 Age-related osteoporosis without current pathological fracture; E03.9 Hypothyroidism, unspecified; Z85.3 Personal history of malignant neoplasm of breast; Z87.891 Personal history of nicotine dependence; F32.9 Major depressive disorder, single episode, unspecified; E66.01 Morbid (severe) obesity due to excess calories
CPT/HCPCS: C1751; C9113; J0878; J1170; J1644; J1815; J2543; J3430; J7030; J7050; P9017; P9612; Q4130

== ENCOUNTER 2016-11-09 03:08 | Inpatient (IN) | payer MEDICARE, MEDICAID ==
[~2016-11-09 03:08] MED LIST changes: +BLEPHAMIDE EYE3.5 G1 OP; +CLARITIN10 M8 PO; +COMBIVENT RESPIM4 G1 NEB; +COMPLETE MULTI1 EAC1 PO; +DESITIN DIAPER28 GM TOP; +GLUCAGON HCL1 MG SC; +LACTINEX CHEWA1 EAC1 PO; +LEVOTHYROXINE75 MC3 PO; +LOVENOX40 MG/0.1 SC; +NYSTATIN15 G2 TOP; +REFRESH PLUS1 EACH OP; +VIBRAMYCIN100 M1 PO
[2016-11-09 04:25] LABS: BASO % 0.3 % (0-2); EOSINOPHIL ABSOLUTE COUNT 0.2 tho/cmm (0.0-0.7); HCT-HEMATOCRIT 34.7 % (34.0-49.0); HGB-HEMOGLOBIN 10.4 gm/dl (12.0-15.5); IMMATURE GRANULOCYTES ABSOLUTE 0.02 tho/cmm (0-0.03); IMMATURE GRANULOCYTES PERCENT 0.2 % (0-0.3); LYMPH % 10.9 % (20-45); LYMPH ABSOLUTE COUNT 1.2 tho/cmm (0.8-4.5); MCH (MEAN CORPUSCULAR HGB) 25.4 pg (28.0-32.0); MCV (MEAN CELL VOLUME) 84.8 fl (82.0-96.0); MEAN PLATELET VOLUME 10.7 cmc (9.4-12.4); MONOCYTE ABSOLUTE COUNT 0.5 tho/cmm (0.0-1.2); NEUTROPHIL ABSOLUTE COUNT 9.2 tho/cmm (1.6-8.0); NEUTROPHIL-AUTOMATED 9.2 tho/cmm (1.6-8.0); NEUTROPHILS % 82.6 % (40-80); PLATELET COUNT 472 tho/cmm (150-450); RED BLOOD COUNT 4.09 mil/cmm (4.00-5.20); RED CELL DISTRIBUTION WIDTH 17.9 % (12.4-16.4); WHITE BLOOD COUNT 11.2 tho/cmm (4.0-10.0)
[2016-11-09] MEDS ORDERED: FLAGYL500 M1 PO (04:30)
[2016-11-09 04:39] LABS: INR 1.7 INR (0.9-1.1); PROTHROMBIN TIME 19.7 SECONDS (9.0-13.6)
[2016-11-09] MEDS ORDERED: BACTRIM DS TAB1 EAC2 PO (04:40)
[2016-11-09] MEDS ORDERED: NORCO 5-325 TA1 EACH PO (04:41)
[2016-11-09] MEDS ORDERED: ZOFRAN4 M2 PO (04:42)
[2016-11-09] MEDS ORDERED: OXYGEN (04:43)
[2016-11-09 04:52] LABS: ALB/GLOB RATIO 0.6 (0.8-2.0); ALKALINE PHOSPHATASE 89 U/L (33-138); ALT/SGPT 19 U/L (12-78); ANION GAP 15 mmol/L (0-20); AST/SGOT 27 U/L (10-40); BILIRUBIN,TOTAL 0.5 mg/dl (0-1.5); BLOOD UREA NITROGEN 42 mg/dl (6-24); CALCIUM 9.3 mg/dl (8.5-10.5); CARBON DIOXIDE-VENOUS 31 mmol/L (22-32); CHLORIDE 99 mmol/l (96-110); CREATININE 2.04 mg/dl (0.50-1.10); GLUCOSE 101 mg/dL (70-110); LIPASE 130 U/L (73-393); MAGNESIUM 2.6 mg/dl (1.8-2.6); POTASSIUM 3.7 mmol/L (3.7-5.1); SODIUM 141 mmol/L (135-145); eGFR VALUE FOR BLACK 27 mL/Min
[2016-11-09 04:56] LABS: PROCALCITONIN 0.07 ng/ml (0.05-0.09)
[2016-11-09 04:59] LABS: TSH-THYROID STIMULATING HORM. 2.71 uIU/ml (0.40-3.80)
[2016-11-09 05:39] LABS: URINE BILIRUBIN MODERATE (NEG); URINE BLOOD SMALL (NEG); URINE GLUCOSE (UA) NEGATIVE (NEG); URINE KETONE MODERATE (NEG); URINE LEUKOCYTE ESTERASE POSITIVE (NEG); URINE NITRITE NEGATIVE (NEG); URINE PROTEIN MODERATE (NEG); URINE SPECIFIC GRAVITY 1.025 (1.003-1.030)
[2016-11-09 05:46] LABS: URINE APPEARANCE HAZY; URINE COLOR DARK YELLOW
[2016-11-09 05:52] LABS: URINE AMORPHOUS 1+; URINE MUCUS 1+; URINE RBC RARE /[HPF] (0-5)
--- NOTE | 2016-11-09 20:00 | NUR ---
VIRTUAL CARE NOTE: DAUGHTER TEO OLEARY CALLED LETTING US KNOW THAT NO ONE ELSE SHOULD BE GETTING PTS MEDICAL INFORMATION. THAT ONLY SHE AND POA (CRIPPLE CHASER SHAYLA RIZO) ARE THE ONLY ONES. MAINLY THIS IS TO PREVENT THE GAME OF TELEPHONE AND DIFFERENT INFORMATION COMING FROM DIFFERENT PEOPLE. ONE SISTER - RUBI - IN PARTICULAR MAKES SITUATIONS WORSE. HAS ALREADY CALLED THE FAMILY SAYING THAT MOM IS DYING AND THEY NEED TO HAVE A FAMILY MEETING ETC. THESE WISHES WERE ALSO VERBALIZED BY THE PATIENT. REVIEWED PLAN OF CARE WITH PATIENT WITH TEO OVER THE PHONE. DENIES FURTHER QUESTIONS OR CONCERNS AT THIS TIME. TEO SAYS SHE WILL ONLY BE CALLING FROM A 308 NUMBER SO THAT IS ONE WAY WE CAN IDENTIFY HER. SHE DENIED THE NEED FOR A CODE OR PASSWORD. JUST TO MAKE SURE THE CALLER IS HER. THE FAMILY MAY CALL THE PATIENT IN THE ROOM AND THAT IS OK, BUT THEY WANT ONE PERSON RESPONSIBLE FOR PLAN OF CARE AND UPDATES. NOTE PUT IN SHIFT REPORT. INFORMED FLOOR STAFF AND WILL INFORM ONCOMING VN.
[2016-11-10 05:36] LABS: BASO % 0.2 % (0-2); EOS % 3.5 % (0-7); EOSINOPHIL ABSOLUTE COUNT 0.3 tho/cmm (0.0-0.7); HCT-HEMATOCRIT 32.3 % (34.0-49.0); HGB-HEMOGLOBIN 9.4 gm/dl (12.0-15.5); IMMATURE GRANULOCYTES ABSOLUTE 0.02 tho/cmm (0-0.03); IMMATURE GRANULOCYTES PERCENT 0.2 % (0-0.3); LYMPH ABSOLUTE COUNT 1.1 tho/cmm (0.8-4.5); MCH (MEAN CORPUSCULAR HGB) 25.1 pg (28.0-32.0); MCHC MEAN CORPUSCULAR HGB CONC 29.1 % (32.0-36.0); MCV (MEAN CELL VOLUME) 86.4 fl (82.0-96.0); MEAN PLATELET VOLUME 10.7 cmc (9.4-12.4); MONO % 5.6 % (0-12); MONOCYTE ABSOLUTE COUNT 0.5 tho/cmm (0.0-1.2); NEUTROPHIL ABSOLUTE COUNT 7.2 tho/cmm (1.6-8.0); NEUTROPHIL-AUTOMATED 7.2 tho/cmm (1.6-8.0); NEUTROPHILS % 78.5 % (40-80); PLATELET COUNT 390 tho/cmm (150-450); RED BLOOD COUNT 3.74 mil/cmm (4.00-5.20); RED CELL DISTRIBUTION WIDTH 17.9 % (12.4-16.4); WHITE BLOOD COUNT 9.2 tho/cmm (4.0-10.0)
[2016-11-10 05:43] LABS: INR 1.9 INR (0.9-1.1); PROTHROMBIN TIME 22.8 SECONDS (9.0-13.6)
[2016-11-10 05:48] LABS: ANION GAP 12 mmol/L (0-20); BLOOD UREA NITROGEN 32 mg/dl (6-24); CARBON DIOXIDE-VENOUS 30 mmol/L (22-32); CHLORIDE 105 mmol/l (96-110); CREATININE 1.56 mg/dl (0.50-1.10); GLUCOSE 91 mg/dL (70-110); MAGNESIUM 2.3 mg/dl (1.8-2.6); PHOSPHOROUS 3.4 mg/dl (2.5-4.9); POTASSIUM 3.6 mmol/L (3.7-5.1); SODIUM 143 mmol/L (135-145); eGFR VALUE FOR BLACK 37 mL/Min
--- NOTE | 2016-11-10 14:33 | NUR ---
[id number] VIRTUAL NURSE NOTES: ROUNDING ON PATIENT. C/O NAUSEA AND VOMITING. STATES HADN'T HAD ANY MEDICATION RECENTLY FOR NAUSEA. PATIENT LOOKS VERY UNCOMFORTABLE. DENIES PAIN. IJEOMA EVANGELISTA NOTIFIED ABOUT GIVING PATIENT SOME COMPAZINE. IJEOMA TO CHECK ON PATIENT. Pee CABRERA RN
[2016-11-11 05:20] LABS: BASO % 0.4 % (0-2); EOS % 5.1 % (0-7); EOSINOPHIL ABSOLUTE COUNT 0.4 tho/cmm (0.0-0.7); HCT-HEMATOCRIT 32.7 % (34.0-49.0); HGB-HEMOGLOBIN 9.3 gm/dl (12.0-15.5); LYMPH % 9.8 % (20-45); LYMPH ABSOLUTE COUNT 0.8 tho/cmm (0.8-4.5); MCH (MEAN CORPUSCULAR HGB) 25.2 pg (28.0-32.0); MCV (MEAN CELL VOLUME) 88.6 fl (82.0-96.0); MEAN PLATELET VOLUME 11.1 cmc (9.4-12.4); MONO % 5.9 % (0-12); MONOCYTE ABSOLUTE COUNT 0.5 tho/cmm (0.0-1.2); NEUTROPHIL ABSOLUTE COUNT 6.7 tho/cmm (1.6-8.0); NEUTROPHIL-AUTOMATED 6.7 tho/cmm (1.6-8.0); NEUTROPHILS % 78.8 % (40-80); PLATELET COUNT 347 tho/cmm (150-450); RED BLOOD COUNT 3.69 mil/cmm (4.00-5.20); RED CELL DISTRIBUTION WIDTH 18.2 % (12.4-16.4); WHITE BLOOD COUNT 8.4 tho/cmm (4.0-10.0)
[2016-11-11 05:23] LABS: MCHC MEAN CORPUSCULAR HGB CONC 28.4 % (32.0-36.0)
[2016-11-11 05:27] LABS: INR 2.2 INR (0.9-1.1); PROTHROMBIN TIME 26.2 SECONDS (9.0-13.6)
[2016-11-12 03:46] LABS: BASO % 0.3 % (0-2); EOS % 5.5 % (0-7); EOSINOPHIL ABSOLUTE COUNT 0.8 tho/cmm (0.0-0.7); HCT-HEMATOCRIT 32.7 % (34.0-49.0); HGB-HEMOGLOBIN 9.5 gm/dl (12.0-15.5); IMMATURE GRANULOCYTES ABSOLUTE 0.03 tho/cmm (0-0.03); IMMATURE GRANULOCYTES PERCENT 0.2 % (0-0.3); LYMPH % 4.5 % (20-45); LYMPH ABSOLUTE COUNT 0.6 tho/cmm (0.8-4.5); MCH (MEAN CORPUSCULAR HGB) 25.3 pg (28.0-32.0); MCHC MEAN CORPUSCULAR HGB CONC 29.1 % (32.0-36.0); MEAN PLATELET VOLUME 10.7 cmc (9.4-12.4); MONO % 3.8 % (0-12); MONOCYTE ABSOLUTE COUNT 0.5 tho/cmm (0.0-1.2); NEUTROPHIL ABSOLUTE COUNT 11.6 tho/cmm (1.6-8.0); NEUTROPHIL-AUTOMATED 11.6 tho/cmm (1.6-8.0); NEUTROPHILS % 85.7 % (40-80); PLATELET COUNT 330 tho/cmm (150-450); RED BLOOD COUNT 3.76 mil/cmm (4.00-5.20); RED CELL DISTRIBUTION WIDTH 18.2 % (12.4-16.4)
[2016-11-12 03:49] LABS: INR 3.3 INR (0.9-1.1); PROTHROMBIN TIME 39.9 SECONDS (9.0-13.6)
[2016-11-12 03:52] LABS: WHITE BLOOD COUNT 13.5 tho/cmm (4.0-10.0)
[2016-11-12 03:55] LABS: ALB/GLOB RATIO 0.7 (0.8-2.0); ALBUMIN 2.5 g/dl (3.5-5.0); ALKALINE PHOSPHATASE 70 U/L (33-138); ALT/SGPT 21 U/L (12-78); AMYLASE 30 U/L (20-90); ANION GAP 13 mmol/L (0-20); AST/SGOT 23 U/L (10-40); BILIRUBIN,TOTAL 0.6 mg/dl (0-1.5); BLOOD UREA NITROGEN 22 mg/dl (6-24); CALCIUM 8.5 mg/dl (8.5-10.5); CARBON DIOXIDE-VENOUS 26 mmol/L (22-32); CHLORIDE 111 mmol/l (96-110); CREATINE PHOSPHOKINASE (CPK) 106 U/L (21-215); CREATININE 1.74 mg/dl (0.50-1.10); GLUCOSE 102 mg/dL (70-110); POTASSIUM 3.5 mmol/L (3.7-5.1); SODIUM 146 mmol/L (135-145); eGFR VALUE FOR BLACK 33 mL/Min
[2016-11-12 03:59] LABS: TSH-THYROID STIMULATING HORM. 1.91 uIU/ml (0.40-3.80)
[2016-11-12 04:13] LABS: PROCALCITONIN 0.13 ng/ml (0.05-0.09)
[2016-11-12 20:05] LABS: URINE BILIRUBIN NEGATIVE (NEG); URINE BLOOD LARGE (NEG); URINE GLUCOSE (UA) NEGATIVE (NEG); URINE KETONE SMALL (NEG); URINE LEUKOCYTE ESTERASE POSITIVE (NEG); URINE NITRITE NEGATIVE (NEG); URINE PROTEIN MODERATE (NEG); URINE SPECIFIC GRAVITY 1.015 (1.003-1.030)
[2016-11-12 20:07] LABS: URINE APPEARANCE CLOUDY; URINE COLOR YELLOW
[2016-11-12 20:13] LABS: URINE AMORPHOUS 2+
[2016-11-12 20:14] LABS: URINE TOTAL PROTEIN-RANDOM 92.8 mg/dl (<11.8)
[2016-11-13 05:02] LABS: BASO % 0.4 % (0-2); EOS % 14.2 % (0-7); EOSINOPHIL ABSOLUTE COUNT 1.2 tho/cmm (0.0-0.7); HCT-HEMATOCRIT 30.4 % (34.0-49.0); HGB-HEMOGLOBIN 8.8 gm/dl (12.0-15.5); IMMATURE GRANULOCYTES ABSOLUTE 0.03 tho/cmm (0-0.03); IMMATURE GRANULOCYTES PERCENT 0.4 % (0-0.3); LYMPH % 10.4 % (20-45); LYMPH ABSOLUTE COUNT 0.9 tho/cmm (0.8-4.5); MCH (MEAN CORPUSCULAR HGB) 25.4 pg (28.0-32.0); MCV (MEAN CELL VOLUME) 87.9 fl (82.0-96.0); MEAN PLATELET VOLUME 10.4 cmc (9.4-12.4); MONO % 4.9 % (0-12); MONOCYTE ABSOLUTE COUNT 0.4 tho/cmm (0.0-1.2); NEUTROPHIL ABSOLUTE COUNT 5.9 tho/cmm (1.6-8.0); NEUTROPHIL-AUTOMATED 5.9 tho/cmm (1.6-8.0); NEUTROPHILS % 69.7 % (40-80); PLATELET COUNT 280 tho/cmm (150-450); RED BLOOD COUNT 3.46 mil/cmm (4.00-5.20); RED CELL DISTRIBUTION WIDTH 18.8 % (12.4-16.4); WHITE BLOOD COUNT 8.4 tho/cmm (4.0-10.0)
[2016-11-13 05:14] LABS: ANION GAP 11 mmol/L (0-20); BLOOD UREA NITROGEN 19 mg/dl (6-24); C-REACTIVE PROTEIN 5.1 mg/dl (0-0.9); CALCIUM 8.4 mg/dl (8.5-10.5); CARBON DIOXIDE-VENOUS 27 mmol/L (22-32); CHLORIDE 111 mmol/l (96-110); CREATININE 2.03 mg/dl (0.50-1.10); GLUCOSE 99 mg/dL (70-110); POTASSIUM 3.1 mmol/L (3.7-5.1); SODIUM 146 mmol/L (135-145); eGFR VALUE FOR BLACK 27 mL/Min
[2016-11-13 05:16] LABS: MCHC MEAN CORPUSCULAR HGB CONC 28.9 % (32.0-36.0)
[2016-11-13 06:21] LABS: PROCALCITONIN 0.12 ng/ml (0.05-0.09)
[2016-11-13 19:00] LABS: URINE BILIRUBIN NEGATIVE (NEG); URINE BLOOD LARGE (NEG); URINE GLUCOSE (UA) NEGATIVE (NEG); URINE KETONE NEGATIVE (NEG); URINE LEUKOCYTE ESTERASE POSITIVE (NEG); URINE NITRITE NEGATIVE (NEG); URINE PROTEIN MODERATE (NEG)
[2016-11-13 19:01] LABS: URINE APPEARANCE HAZY; URINE COLOR YELLOW
[2016-11-13 19:05] LABS: URINE BACTERIA 1+; URINE EPITHELIAL CELLS 0 /[HPF] (0-10); URINE RBC 0 /[HPF] (0-5)
[2016-11-13 19:09] LABS: URINE CREATININE-RANDOM 111 mg/dl (30-125); URINE SODIUM-RANDOM 51 mmol/L (20-110)
[2016-11-14 05:53] LABS: BASO % 0.3 % (0-2); HCT-HEMATOCRIT 29.3 % (34.0-49.0); HGB-HEMOGLOBIN 8.6 gm/dl (12.0-15.5); IMMATURE GRANULOCYTES ABSOLUTE 0.01 tho/cmm (0-0.03); IMMATURE GRANULOCYTES PERCENT 0.2 % (0-0.3); LYMPH % 19.8 % (20-45); LYMPH ABSOLUTE COUNT 1.2 tho/cmm (0.8-4.5); MCH (MEAN CORPUSCULAR HGB) 25.5 pg (28.0-32.0); MCHC MEAN CORPUSCULAR HGB CONC 29.4 % (32.0-36.0); MCV (MEAN CELL VOLUME) 86.9 fl (82.0-96.0); MEAN PLATELET VOLUME 10.4 cmc (9.4-12.4); MONO % 7.8 % (0-12); MONOCYTE ABSOLUTE COUNT 0.5 tho/cmm (0.0-1.2); NEUTROPHIL ABSOLUTE COUNT 3.3 tho/cmm (1.6-8.0); NEUTROPHIL-AUTOMATED 3.3 tho/cmm (1.6-8.0); NEUTROPHILS % 55.7 % (40-80); PLATELET COUNT 264 tho/cmm (150-450); RED BLOOD COUNT 3.37 mil/cmm (4.00-5.20); WHITE BLOOD COUNT 5.9 tho/cmm (4.0-10.0)
[2016-11-14 05:55] LABS: EOS % 16.2 % (0-7)
[2016-11-14 06:09] LABS: ALBUMIN 2.2 g/dl (3.5-5.0); ANION GAP 10 mmol/L (0-20); BLOOD UREA NITROGEN 15 mg/dl (6-24); CALCIUM 8.3 mg/dl (8.5-10.5); CARBON DIOXIDE-VENOUS 26 mmol/L (22-32); CHLORIDE 113 mmol/l (96-110); GLUCOSE 101 mg/dL (70-110); MAGNESIUM 1.7 mg/dl (1.8-2.6); PHOSPHOROUS 2.9 mg/dl (2.5-4.9); POTASSIUM 3.6 mmol/L (3.7-5.1); SODIUM 145 mmol/L (135-145); eGFR VALUE FOR BLACK 36 mL/Min
[2016-11-14 06:10] LABS: C-REACTIVE PROTEIN 2.5 mg/dl (0-0.9)
[2016-11-14 06:55] LABS: PROCALCITONIN 0.05 ng/ml (0.05-0.09)
[2016-11-15 05:51] LABS: ANION GAP 10 mmol/L (0-20); BLOOD UREA NITROGEN 11 mg/dl (6-24); CARBON DIOXIDE-VENOUS 25 mmol/L (22-32); CHLORIDE 113 mmol/l (96-110); CREATININE 1.35 mg/dl (0.50-1.10); GLUCOSE 99 mg/dL (70-110); PHOSPHOROUS 2.5 mg/dl (2.5-4.9); POTASSIUM 3.4 mmol/L (3.7-5.1); SODIUM 145 mmol/L (135-145); eGFR VALUE FOR BLACK 44 mL/Min
[2016-11-16 06:17] LABS: ALBUMIN 2.2 g/dl (3.5-5.0); ANION GAP 8 mmol/L (0-20); BLOOD UREA NITROGEN 10 mg/dl (6-24); CALCIUM 8.4 mg/dl (8.5-10.5); CARBON DIOXIDE-VENOUS 27 mmol/L (22-32); CHLORIDE 114 mmol/l (96-110); GLUCOSE 103 mg/dL (70-110); PHOSPHOROUS 2.6 mg/dl (2.5-4.9); SODIUM 145 mmol/L (135-145); eGFR VALUE FOR BLACK 51 mL/Min
[2016-11-16 06:22] LABS: POTASSIUM 4.3 mmol/L (3.7-5.1)
[2016-11-16 15:55] LABS: INR 1.2 INR (0.9-1.1); PROTHROMBIN TIME 13.8 SECONDS (9.0-13.6)
[2016-11-17 06:19] LABS: BASO % 0.4 % (0-2); EOS % 9.9 % (0-7); EOSINOPHIL ABSOLUTE COUNT 0.5 tho/cmm (0.0-0.7); IMMATURE GRANULOCYTES ABSOLUTE 0.01 tho/cmm (0-0.03); IMMATURE GRANULOCYTES PERCENT 0.2 % (0-0.3); LYMPH % 28.1 % (20-45); LYMPH ABSOLUTE COUNT 1.3 tho/cmm (0.8-4.5); MCH (MEAN CORPUSCULAR HGB) 25.2 pg (28.0-32.0); MCV (MEAN CELL VOLUME) 86.8 fl (82.0-96.0); MEAN PLATELET VOLUME 10.5 cmc (9.4-12.4); MONO % 7.5 % (0-12); MONOCYTE ABSOLUTE COUNT 0.4 tho/cmm (0.0-1.2); NEUTROPHIL ABSOLUTE COUNT 2.5 tho/cmm (1.6-8.0); NEUTROPHIL-AUTOMATED 2.5 tho/cmm (1.6-8.0); NEUTROPHILS % 53.9 % (40-80); PLATELET COUNT 228 tho/cmm (150-450); RED BLOOD COUNT 3.57 mil/cmm (4.00-5.20); RED CELL DISTRIBUTION WIDTH 19.1 % (12.4-16.4); WHITE BLOOD COUNT 4.7 tho/cmm (4.0-10.0)
[2016-11-17 06:28] LABS: ALB/GLOB RATIO 0.5 (0.8-2.0); ALKALINE PHOSPHATASE 58 U/L (33-138); ALT/SGPT 21 U/L (12-78); ANION GAP 8 mmol/L (0-20); AST/SGOT 16 U/L (10-40); BILIRUBIN,TOTAL 0.3 mg/dl (0-1.5); BLOOD UREA NITROGEN 10 mg/dl (6-24); C-REACTIVE PROTEIN 0.9 mg/dl (0-0.9); CALCIUM 8.5 mg/dl (8.5-10.5); CARBON DIOXIDE-VENOUS 29 mmol/L (22-32); CHLORIDE 113 mmol/l (96-110); CREATININE 1.12 mg/dl (0.50-1.10); GLUCOSE 88 mg/dL (70-110); PHOSPHOROUS 3.7 mg/dl (2.5-4.9); POTASSIUM 4.2 mmol/L (3.7-5.1); SODIUM 146 mmol/L (135-145); eGFR VALUE FOR BLACK 56 mL/Min
[2016-11-17 12:31] LABS: INR 1.2 INR (0.9-1.1)
== END 2016-11-17 16:10 | DRG 391 ==
LOC: EDMED 03:08 → EMR2 07:04 → 5WD 07:49 → BURN 11-10 17:27
PROVIDERS: Emergency Medicine; Family Medicine; Internal Medicine; Internal Medicine Infectious Disease; Internal Medicine Nephrology; Registered Nurse; Surgery; ADMIT Hospitalist
PROC: 02HV33Z Insertion of Infusion Device into Superior Vena Cava, Percutaneous Approach (ICD-10-PCS; 2016-11-09)
PROC: 0DB38ZX Excision of Lower Esophagus, Via Natural or Artificial Opening Endoscopic, Diagnostic (ICD-10-PCS; principal; 2016-11-12)
PROC: 0DB68ZX Excision of Stomach, Via Natural or Artificial Opening Endoscopic, Diagnostic (ICD-10-PCS; 2016-11-12)
PROC: 0DB98ZX Excision of Duodenum, Via Natural or Artificial Opening Endoscopic, Diagnostic (ICD-10-PCS; 2016-11-12)
DX: R11.2 Nausea with vomiting, unspecified (principal); J96.01 Acute respiratory failure with hypoxia; N17.9 Acute kidney failure, unspecified; E87.0 Hyperosmolality and hypernatremia; E46 Unspecified protein-calorie malnutrition; E11.22 Type 2 diabetes mellitus with diabetic chronic kidney disease; N39.0 Urinary tract infection, site not specified; T83.511A Infection and inflammatory reaction due to indwelling urethral catheter, initial encounter; E88.09 Other disorders of plasma-protein metabolism, not elsewhere classified; K22.2 Esophageal obstruction; I48.2 Chronic atrial fibrillation; Z99.81 Dependence on supplemental oxygen; I12.9 Hypertensive chronic kidney disease with stage 1 through stage 4 chronic kidney disease, or unspecified chronic kidney disease; J98.11 Atelectasis; N18.3 Chronic kidney disease, stage 3 (moderate); Z79.01 Long term (current) use of anticoagulants; D63.8 Anemia in other chronic diseases classified elsewhere; J44.9 Chronic obstructive pulmonary disease, unspecified; K21.0 Gastro-esophageal reflux disease with esophagitis; G47.33 Obstructive sleep apnea (adult) (pediatric); E66.01 Morbid (severe) obesity due to excess calories; Z68.35 Body mass index [BMI] 35.0-35.9, adult; K44.9 Diaphragmatic hernia without obstruction or gangrene; G25.81 Restless legs syndrome; E03.9 Hypothyroidism, unspecified; Z88.8 Allergy status to other drugs, medicaments and biological substances; Z91.09 Other allergy status, other than to drugs and biological substances; Z79.82 Long term (current) use of aspirin; Z85.3 Personal history of malignant neoplasm of breast; Z87.11 Personal history of peptic ulcer disease; K59.09 Other constipation; J45.909 Unspecified asthma, uncomplicated; M06.9 Rheumatoid arthritis, unspecified; F41.9 Anxiety disorder, unspecified; Z66 Do not resuscitate; R63.4 Abnormal weight loss; E87.6 Hypokalemia; R32 Unspecified urinary incontinence; F32.9 Major depressive disorder, single episode, unspecified; R53.81 Other malaise
CPT/HCPCS: A9541; C1751; C9113; J0780; J0878; J1170; J1200; J1940; J2060; J2405; J2543; J2765; J3475; J3480; J7030; J7040; J7050